=== PATIENT | male | born 1990 | race Caucasian/White ===

== ENCOUNTER 2017-12-01 20:45 | Emergency (ER) | payer SELFPAY ==
--- NOTE | 2017-12-01 21:03 | EDPHY ---
H & P Stated Complaint: fall skateboarding r eyebrow lac and neck pain Time Seen by Provider: 12/01/17 20:52 HPI/ROS: CHIEF COMPLAINT: Right eyebrow laceration HISTORY OF PRESENT ILLNESS: 27-year-old male arrives via ambulance after he was the non helmeted skateboarder states that he was going too fast, sustained a mechanical fall off his skateboard hit the right frontal region sustained a laceration to the right eyebrow laceration. He is unclear whether he sustained loss of consciousness or not. He does admit to alcohol use. He denies midline C-spine pain. Denies peripheral paresthesia, weakness, numbness. Denies: Chest pain or trauma, back pain or trauma, abdominal pain or trauma, dyspnea with pelvic injury, peripheral musculoskeletal pain or injury. REVIEW OF SYSTEMS: A ten point review of systems was performed and is negative with the exception of the items mentioned in the HPI PAST MEDICAL/SURGICAL HISTORY: no anticoagulant use, no relevant medical/ surgical history SOCIAL HISTORY: Admits to alcohol use earlier today PHYSICAL EXAM 1) GENERAL: Well-developed, well-nourished, alert and oriented. Appears to be in no acute distress. Answering questions appropriately. GCS 15 2) HEAD: Normocephalic, right lateral eyebrow 2.5 cm laceration 3) HEENT: Pupils equal, round, reactive to light bilaterally. Negative Horners. Nasopharynx, oropharynx, clear. No deformity or angulation of nose. No septal hematoma. No rhinorrhea. No oral trauma. Ears bilaterally with normal tympanic membranes. No hemotympanum. No fluid or blood in the external auditory canal. No raccoon eyes. No Deleon sign. Teeth are normally aligned with no gross malocclusion, TMJ bilaterally nontender, facial bones nontender including the zygomatic arch, maxilla mandible. 4) NECK: [No cervical collar is on. Patient is unable to completely differentiate between true midline pain versus just lateral of midline pain.Cervical collar is placed at that point and patient quickly removed this and refuses to keep cervical collar on 5) LUNGS: Breathing comfortably. Patient will not allow me to examine his chest or auscultated lungs. This exam is limited as patient will not allow me to physically touch him below the level of the neck 6) HEART: No cyanotic discoloration to skin. This exam is limited as patient will not allow me to physically touch him below the level of the neck 7) ABDOMEN: No guarding. Patient will not allow me to palpate or visualize his abdomen.This exam is limited as patient will not allow me to physically touch him below the level of the neck 8) MUSCULOSKELETAL: Moving all extremities, no obvious trauma. This exam is limited as patient will not allow me to physically touch him below the level of the neck 9) BACK: Not allow me to touch him or examine this area 10) SKIN: laceration to the forehead DIFFERENTIAL DIAGNOSIS: Not necessarily in any particular order, my differential diagnosis includes, but is not limited to, concussion, skull fracture, intraparenchymal contusion, subarachnoid, subdural and epidural hematoma. The patient understands that this diagnosis is provisional and can never be 100% accurate. - Personal History Current Tetanus/Diphtheria Vaccine: Unsure Current Tetanus Diphtheria and Acellular Pertussis (TDAP): Unsure - Medical/Surgical History Hx Asthma: Yes Hx Chronic Respiratory Disease: No Hx Diabetes: No Hx Cardiac Disease: No Hx Renal Disease: No Hx Cirrhosis: No Hx Alcoholism: No Hx HIV/AIDS: No Hx Splenectomy or Spleen Trauma: No - Social History Smoking Status: Current every day smoker Constitutional: Initial Vital Signs Temperature (C) 37 C 12/01/17 20:55 Heart Rate 86 12/01/17 20:55 Respiratory Rate 18 12/01/17 20:55 Blood Pressure 113/77 12/01/17 20:55 O2 Sat (%) 96 12/01/17 20:55 O2 Delivery Mode Room Air Allergies/Adverse Reactions: acetaminophen [From Tylenol] Allergy (Verified 12/01/17 20:55) Home Medications: Medication Instructions Recorded Albuterol 12/01/17 Medical Decision Making Procedures: Procedure: Laceration repair. I explained the indications, risks and benefits for both laceration repair and anesthetic administration. Verbal consent was obtained from the patient. The laceration on the right eyebrow was anesthetized using 0.5% bupivicaine with epinephrine. After anesthetic administered the patient was observed for a period of time and had no apparent adverse effects. The wound was cleaned, prepped, draped in normal sterile fashion and explored to its base. No foreign body seen, no foreign bodies palpated. There were no deep structures involved. No tendon injury was identified. The wound was repaired with 7 simple interrupted 6 0 Prolene sutures. The wound repair was complex. The procedure was performed by myself. Patient has been informed that scarring will occur, although efforts have been made to minimize this. ED Course/Re-evaluation: 9:03 p.m.: The patient will not allow me to examine him below the level of his neck. He only wants me to address his eyebrow laceration. He declines all imaging, declined all diagnostic studies. I did initially place the patient in a cervical collar however he quickly removed and refused to last replace it. At a minimum I recommended CT imaging the head and cervical spine which he adamantly declines. He has been informed that intracranial hemorrhage, skull fracture, cervical injury is not ruled out. He is answering questions appropriate this time. Although he does admit to alcohol use earlier this evening he is clinically sober. He will not allow me to examine him below the level of the neck. He is breathing comfortably. He has been informed that I am unable to rule out further injury. Shortly after performing wound closure the patient walked out of emergency department. - Data Points Medications Given: Discontinued Medications Diphtheria/Tetanus/Acell Pertussis (Boostrix) 0.5 ml IM .ONCE ONE Stop: 12/01/17 21:06 Last Admin: 12/01/17 21:08 Dose: 0.5 ml Departure - Departure Disposition: Home, Routine, Self-Care Clinical Impression: Forehead laceration Qualifiers: Encounter type: initial encounter Qualified Code(s): S01.81XA - Laceration without foreign body of other part of head, initial encounter Head injury Qualifiers: Encounter type: initial encounter Qualified Code(s): S09.90XA - Unspecified injury of head, initial encounter Condition: Good Instructions: Care For Your Stitches (ED), Laceration (ED) Additional Instructions: You have declined all imaging studies against my recommendations. You have not allowed me to examine you below the level of your neck. Referrals: Return, to the ER in 5 days for suture removal [Other] - As per Instructions
[2017-12-01] MEDS ORDERED: TDAP ADULT 0.5 ML INJ (BOOSTRIX) IM ONE (21:05)
[2017-12-01 21:49] VITALS: BP 126/77
== END 2017-12-01 21:49 | disposition home or self-care (01) ==
PROC: 0HQ1XZZ Repair Face Skin, External Approach (ICD-10-PCS; principal; 2017-12-01)
DX: S01.111A Laceration without foreign body of right eyelid and periocular area, initial encounter (principal); V00.131A Fall from skateboard, initial encounter; Y99.8 Other external cause status; Y93.51 Activity, roller skating (inline) and skateboarding; J45.909 Unspecified asthma, uncomplicated; F17.200 Nicotine dependence, unspecified, uncomplicated; Z23 Encounter for immunization
CPT/HCPCS: L0172